=== PATIENT | female | born 1950 | race Caucasian/White ===

== ENCOUNTER → 2019-01-12 | Outpatient (CLI) | payer OTHER ==
[~2019-01-12] MED LIST: CRESTOR5 MG PO; SYNTHROID100 MCG PO; ZANTAC150 MG PO
--- NOTE | 2019-01-12 13:07 | Diagnostic Imaging Report ---
Exam: KUB - 2 views Indication: Hematuria Comparison: None Findings: No radiographically apparent renal calculi. Nonobstructive bowel gas pattern. No free air. Degenerative changes of the visualized spine. Impression: No radiographically apparent renal calculi. Signed by: Ismael Simpson MD on 01/12/2019 1:04 PM
--- NOTE | 2019-01-12 13:23 | Diagnostic Imaging Report ---
EXAM: Renal Ultrasound INDICATION: ^[id number] ^[id number] ^MICROSCOPIC HEMATURIA COMPARISON: KUB of the same day. TECHNIQUE: Transverse and longitudinal images of the kidneys and bladder were obtained. FINDINGS: Right Kidney: Length: 10.4 cm Appearance: Normal echogenicity. Collecting system: No hydronephrosis Stones: None Cyst/Mass: None Left Kidney: Length: 10.5 cm Appearance: Normal echogenicity. Collecting system: No hydronephrosis Stones: None Cyst/Mass: None Bladder: No mass or calculi. Bilateral ureteral jets seen. Prevoid volume estimate of 106 cc. IMPRESSION: No hydronephrosis or renal calculi. Signed by: Ismael Simpson MD on 01/12/2019 1:19 PM
== END ==
LOC: US 11:36
PROVIDERS: ATTEND Urology
DX: R31.21 Asymptomatic microscopic hematuria (principal)
CPT/HCPCS: 74018; 76770

== ENCOUNTER → 2020-09-07 | Outpatient (CLI) | payer MEDICARE ==
[~2020-09-07] MED LIST changes: +BIOTIN800 MCG PO; +CENTRUM ADULTS1 EACH PO; +PANTOPRAZOLE SO40 MG PO; +VIACTIV 650 MG1 EACH PO; +VITAMIN B-125000 MC2 PO; +VITAMIN D35000 UNI2 PO
== END ==
LOC: US 13:51
PROVIDERS: ATTEND Urology
DX: R31.21 Asymptomatic microscopic hematuria (principal)
CPT/HCPCS: 76770